=== PATIENT | male | born 1980 | race Caucasian/White ===

== ENCOUNTER 2017-11-20 16:15 | Emergency (ER) | END 2017-11-20 20:00 | disposition home or self-care (01) ==

== ENCOUNTER 2018-01-04 08:54 | Emergency (ER) | END 2018-01-04 11:29 | disposition home or self-care (01) ==

== ENCOUNTER 2018-05-08 14:08 | Emergency (ER) | payer OTHER ==
[~2018-05-08] VITALS: Ht 177.8 cm; Wt 60.6 kg
[~2018-05-08 14:08] MED LIST: ACET500C5 PO; CIPR-193 PO; ONDA4TAB14 PO
[2018-05-08 14:28] VITALS: BP 116/75; PULSE 76; RESP 20; Ht 177.8 cm; Wt 60.6 kg
--- NOTE | 2018-05-08 15:42 | ERD ---
ER Documentation Chief Complaint Chief Complaint bump noted on groin area with pain on scrotal pain since yesterday HPI 37-year-old male, previously healthy, presents to the emergency department, complaining of right testicular pain for 2 days, associated with a tender, round nodule on the right groin area. The patient denies urinary symptoms, no penile symptoms. The patient was seen by myself 2 months ago here in the emergency department, at that time the patient was requesting a full screening for cancer. Today the patient also states that he is very concerned about testicular cancer. ROS All systems reviewed and are negative except as per history of present illness. Medications Home Meds Active Scripts Ciprofloxacin Hcl* (Ciprofloxacin Hcl*) 250 Mg Tablet, 250 MG PO BID, #14 TAB Prov:CHRISTEL HARPER MD 01/04/18 Ondansetron (Ondansetron Odt) 4 Mg Tab.rapdis, 4 MG PO Q6H PRN for NAUSEA AND/OR VOMITING, #10 TAB Prov:KECIA YUN PA-C 11/20/17 Acetaminophen* (Tylophen*) 500 Mg Capsule, 1 CAP PO Q6H PRN for PAIN AND OR ELEVATED TEMP, #20 CAP Prov:KECIA YUN PA-C 11/20/17 Allergies Allergies: Coded Allergies: No Known Allergy (Unverified , 11/20/17) PMhx/Soc History of Surgery: Yes (R.Ear) Anesthesia Reaction: No Hx Neurological Disorder: No Hx Respiratory Disorders: No Hx Cardiac Disorders: No Hx Psychiatric Problems: No Hx Miscellaneous Medical Probl: No Hx Alcohol Use: Yes Hx Substance Use: No Hx Tobacco Use: No Smoking Status: Never smoker FmHx Family History: No diabetes, No coronary disease Physical Exam Vitals Vital Signs Date Temp Pulse Resp B/P (MAP) Pulse Ox O2 O2 Flow FiO2 Time Delivery Rate 05/08/18 98.3 76 20 116/75 99 14:28 (89) Physical Exam Const: No acute distress Head: Atraumatic Eyes: Normal Conjunctiva ENT: Normal External Ears, Nose and Mouth. Neck: Full range of motion. No meningismus. Resp: Clear to auscultation bilaterally Cardio: Regular rate and rhythm, no murmurs Abd: Soft, non tender, non distended. Normal bowel sounds : Deferred. Skin: No petechiae or rashes Back: No midline or flank tenderness Ext: No cyanosis, or edema Neur: Awake and alert Psych: Normal Mood and Affect Results 24 hrs Laboratory Tests Test 05/08/18 15:47 Urine Color YELLOW Urine Clarity CLEAR Urine pH 5.0 Urine Specific [place] 1.021 Urine Ketones TRACE mg/dL Urine Nitrite NEGATIVE mg/dL Urine Bilirubin NEGATIVE mg/dL Urine Urobilinogen NEGATIVE mg/dL Urine Leukocyte Esterase NEGATIVE Luis F/ul Urine Microscopic RBC 9 /HPF Urine Microscopic WBC 1 /HPF Urine Mucus FEW /HPF Urine Hemoglobin 2+ mg/dL Urine Glucose NEGATIVE mg/dL Urine Total Protein NEGATIVE mg/dl Procedures/MDM During the medical encounter differential diagnosis like UTI, epididymitis, inguinal hernia, testicular torsion, varicocele, testicular mass were considered, therefore and a scrotal ultrasound and a were requested, see results above. Physical examination and clinical presentation consistent most likely with testicular pain with low suspicion for acute scrotum. During the ED course the patient remained stable, no new complaints. Results and clinical impression discussed with patient who agrees with manage ment. The patient was instructed to follow up with the primary care provider in the next 48h. If symptoms persist, worsen or new symptoms develop, then patient should return to the ED immediately. Instructions explained and given directly by me to the patient with acknowledgment and demonstrated understanding. Disclaimer: Inadvertent spelling and grammatical errors are likely due to EHR/dictation software use and do not reflect on the overall quality of patient care. Also, please note that the electronic time recorded on this note does not necessarily reflect the actual time of the patient encounter. Departure Diagnosis: Primary Impression: Right testicular pain Condition: Stable Additional Instructions: Thank you very much for allowing us to participate in your care. Your health and safety is our top priority at [facility]. Call your primary care doctor TOMORROW for an appointment during the next 2-4 days and bring all the information and medications prescribed. Have prescriptions filled and follow precisely the directions on the label. If the symptoms get worse and your provider is unavailable, return to the Emergency Department immediately. CHRISTEL HARPER MD May 08, 2018 15:42
== END 2018-05-08 17:52 | disposition home or self-care (01) ==
LOC: FTE 14:08
DX: N50.811 Right testicular pain (principal)
CPT/HCPCS: 76870; 81001